=== PATIENT | female | born 1980 | race Caucasian/White ===

== ENCOUNTER → 2022-03-30 | Outpatient (CLI) | payer OTHER ==
[2022-03-30 15:02] VITALS: BMI 80.5
[2022-03-30 15:44] VITALS: BP 178/126; PULSE 88; RESP 16; TEMP 98.2
--- NOTE | 2022-03-30 15:54 | P.HPBAR ---
Bariatric H&P - History & Physicial H&P Date: 03/30/22 History & Physicial: Visit/CC: iNITIAL VISIT Patient initial contact: Initial weight: 212.763 kg Initial weight in pounds: 469.06 Height: 5 ft 4 in Initial BMI: 80.5 Last weight: Current weight: 212.763 kg Current weight in pounds: 469.06 Current BMI: 80.5 [place] body weight (based on NIH guidelines): 54.431 kg Excess body weight loss: 0.0% The patient is a 41 year-old F who presents for Bariatric Assessment. Patient here today to discuss surgical weight loss options. Patient states she has dealt with her weight for her whole life. Recently she had a change in her jobs where she is now sitting most of the time and in the last 6 months or so has gained 40 pounds. Patient describes bilateral lower extremity swelling that is increasing in severity. Patient states she tried a diuretic but had to stop it because of some lab values that were abnormal. She was told them to obtain an echo and has ordered for next week. No history of DVT or dysphagia in the past. No known hernias. No significant reflux symptoms. Current BMI 80.5. Patient states she is leaning towards sleeve gastrectomy at this time. No abdominal surgeries. Patient doesn't history of heavy uterine bleeding in the past. She states she was told in the past she may have von Willebrand's factor. Her menstrual cycles lately have been more normal. She says over the years she has received blood transfusions at times for her anemia. Review of Systems The patient denies any acute changes in vision or hearing, no dysphagia or odynophagia, no chest pain or shortness of breath, no dysuria or hematuria, no headache, no runny nose, no rectal bleeding or melena, no unexplained weight loss Past Medical History Past Medical History: Sleep Apnea/CPAP/BIPAP History of Any Multi-Drug Resistant Organisms: None Reported Additional Past Surgical History / Comment(s): d & c Past Anesthesia/Blood Transfusion Reactions: No Reported Reaction Past Psychological History: No Psychological Hx Reported Smoking Status: Current some day smoker Past Alcohol Use History: Occasional Past Drug Use History: None Reported Surgical - Exam Vital Signs Temp Pulse Resp BP 98.2 F 88 16 178/126 03/30/22 14:59 03/30/22 14:59 03/30/22 14:59 03/30/22 14:59 Physical exam: General: Well-developed, well-nourished HEENT: Normocephalic, sclerae nonicteric Abdomen: Nontender, nondistended Extremities: Significant bilateral lower extremity edema Neuro: Alert and oriented Bariatric Assessment & Plan (1) Morbid obesity with BMI of 70 and over, adult Narrative/Plan: 5-year-old female with significant morbid obesity with current BMI over 80. Discussed surgical options in detail. Discussed the average weight loss expectations with the various surgeries. Patient will consider gastric bypass and duodenal switch given her elevated body mass index. Patient may require preoperative cardiac consultation pending echo next week. We discussed her history of possible von Willebrand's factor and that this may need to be further addressed prior to surgical intervention. Patient has done a lot of research on her own and seems familiar with the various surgeries at this time. She will continue to do some research into surgical weight loss options at higher BMI levels. At this time encouraging patient to consider gastric bypass or duodenal switch given her elevated BMI. She will notify me of her decision. Status: Acute Bariatric Checklist Checklist: Plan: Checklist: EGD: 1. Hiatal hernia: 2. H. Pylori: HgbA1c: Vitamin D: Smoking: Primary care physician referral: Dr. Bertrand Psychiatry clearance: Cardiology clearance: Sleep study: Diet journal: VTE risk score: VTE risk level: Rehab needs at discharge:
== END ==
LOC: BARWHC3 14:43
PROVIDERS: ATTEND Surgery
DX: E66.01 Morbid (severe) obesity due to excess calories (principal); Z68.45 Body mass index [BMI] 70 or greater, adult; F17.200 Nicotine dependence, unspecified, uncomplicated; Z88.0 Allergy status to penicillin
CPT/HCPCS: 99202